=== PATIENT | male | born 1960 | race Caucasian/White ===

== ENCOUNTER 2017-06-10 20:30 | Emergency (ER) | payer SELFPAY ==
[2017-06-10 20:41] VITALS: BP 132/79
[2017-06-10] MEDS ORDERED: NS 0.9% 1000 ML* 1,000 ML IV ONE (22:21)
[2017-06-10] MEDS ORDERED: Clindamycin 900 MG IVPREMIX(* 900 MG/50 ML SDV IV ONE (22:22)
[2017-06-10 22:53] LABS: Hematocrit 45 % (42-52); Hemoglobin 15.5 g/dl (14.0-18.0); Mean Corpuscular HGB Conc 34 g/dl (31-36); Mean Corpuscular Hemoglobin 30 pg (27-31); Mean Corpuscular Volume 88 fL (80-94); Mean Platelet Volume 9 um3 (7.4-10.4); Red Blood Count 5.15 10^6/ul (4.0-5.4); Red Cell Distribution Width 13 % (10.5-15); White Blood Count 9.5 10^3/ul (3.5-10.8)
[2017-06-10 23:09] LABS: Albumin 4.2 g/dL (3.2-5.2); BUN/Creatinine Ratio 15.4 (8-20); C Reactive Protein 8.04 mg/L (< 5.00); Calcium 9.2 mg/dL (8.6-10.3); EGFR African American 110.1 (>60); EGFR Non-African American 85.6 (>60); Potassium 3.7 mmol/L (3.5-5.0); Total Bilirubin 0.6 mg/dL (0.2-1.0); Total Protein 7.2 g/dL (6.4-8.9)
[2017-06-11] MEDS ORDERED: Clindamycin CAP* 150 MG PO ONE (02:35)
[2017-06-11] MEDS ORDERED: Silver Sulfadiazine 1% 400gm* 1 APPLIC JAR TOPICAL ONE (02:36)
--- NOTE | 2017-06-11 02:47 | ED ---
Damian Cast Benjamin, scribed for Kade Pope MD on 06/10/17 at 2226 . Lower Extremity - HPI Summary HPI Summary: 56yo male c/o left foot pain since . 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 4000psi hot water shot at his left foot, cutting though his work boot. Pt was seen at [facility] today and was sent to ED for further evaluation. - History of Current Complaint Chief Complaint: EDExtremityLower Stated Complaint: LT FOOT INJURY/SENT BY [facility] Time Seen by Provider: 06/10/17 22:16 Hx Obtained From: Patient Onset of Pain: Post Accident Onset/Duration: Still Present - 2 days Severity Initially: Moderate Severity Currently: Moderate Pain Intensity: 7 Pain Scale Used: 0-10 Numeric Timing: Constant Location: Is Discrete @ - left foot Associated Signs And Symptoms: Positive: Swelling, Redness - Allergies/Home Medications Allergies/Adverse Reactions: Allergies Allergy/AdvReac Type Severity Reaction Status Date / Time Penicillins Allergy Unknown Verified 06/10/17 20:41 Reaction Details PMH/Surg Hx/FS Hx/Imm Hx Previously Healthy: Yes Endocrine/Hematology History: Denies: Hx Diabetes Cardiovascular History: Denies: Hx Coronary Artery Disease Infectious Disease History: No Infectious Disease History: Denies: Traveled Outside the [place] in Last 30 Days - Family History Known Family History: Positive: Hypertension - Social History Occupation: Employed Full-time Lives: With Family Alcohol Use: None Substance Use Type: Reports: None Smoking Status (MU): Former Smoker Review of Systems Constitutional: Negative Eyes: Negative ENT: Negative Cardiovascular: Negative Respiratory: Negative Gastrointestinal: Negative Genitourinary: Negative Musculoskeletal: Negative Positive: Other - blistering on left hoot. Neurological: Negative Psychological: Normal All Other Systems Reviewed And Are Negative: Yes Physical Exam - Summary Physical Exam Summary: General: well-appearing, no pain distress Skin: warm, dry. On the L foot over all 5 toes and the distal 7 cm of the plantar aspect of the foot, the patient has second degree church with blistering and one of the blisters has opened. There is some erythema and swelling medial to this region. He has good capillary refill and good sensation. Head: normal Eyes: EOMI, CK ENT: normal Neck: supple, nontender Respiratory: CTA, breath sounds present Cardiovascular: RRR Abdomen: soft, nontender Bowel: present Musculoskeletal: normal, strength/ROM intact Neurological: normal, sensory/motor intact, A&O x3 Psychological: affect/mood appropriate Triage Information Reviewed: Yes Vital Signs On Initial Exam: Initial Vitals Temp Pulse Resp BP Pulse Ox 97.8 F 72 16 132/79 97 06/10/17 20:38 06/10/17 20:38 06/10/17 20:38 06/10/17 20:38 06/10/17 20:38 Vital Signs Reviewed: Yes Diagnostics - Vital Signs Vital Signs Temp Pulse Resp BP Pulse Ox 06/10/17 20:41 97.8 F 72 16 132/79 97 06/10/17 20:38 97.8 F 72 16 132/79 97 - Laboratory Lab Results: Lab Results 06/10/17 06/10/17 06/10/17 Range/Units 22:40 22:40 22:40 WBC 9.5 (3.5-10.8) 10^3/ul RBC 5.15 (4.0-5.4) 10^6/ul Hgb 15.5 (14.0-18.0) g/dl Hct 45 (42-52) % MCV 88 (80-94) fL MCH 30 (27-31) pg MCHC 34 (31-36) g/dl RDW 13 (10.5-15) % Plt Count 237 (150-450) 10^3/ul MPV 9 (7.4-10.4) um3 Neut % (Auto) 58.6 (38-83) % Lymph % (Auto) 26.9 (25-47) % [place] % (Auto) 10.9 H (1-9) % Eos % (Auto) 3.0 (0-6) % Baso % (Auto) 0.6 (0-2) % Absolute Neuts (auto) 5.5 (1.5-7.7) 10^3/ul Absolute Lymphs (auto) 2.5 (1.0-4.8) 10^3/ul Absolute Monos (auto) 1.0 H (0-0.8) 10^3/ul Absolute Eos (auto) 0.3 (0-0.6) 10^3/ul Absolute Basos (auto) 0.1 (0-0.2) 10^3/ul Absolute Nucleated RBC 0.01 10^3/ul Nucleated RBC % 0.1 INR (Anticoag Therapy) 0.89 (0.89-1.11) APTT 31.5 (26.0-36.3) seconds Sodium 137 (133-145) mmol/L Potassium 3.7 (3.5-5.0) mmol/L Chloride 105 (101-111) mmol/L Carbon Dioxide 26 (22-32) mmol/L Anion Gap 6 (2-11) mmol/L BUN 14 (6-24) mg/dL Creatinine 0.91 (0.67-1.17) mg/dL Est GFR ( Amer) 110.1 (>60) Est GFR (Non-Af Amer) 85.6 (>60) BUN/Creatinine Ratio 15.4 (8-20) Glucose 102 H (70-100) mg/dL Lactic Acid (0.5-2.0) mmol/L Calcium 9.2 (8.6-10.3) mg/dL Total Bilirubin 0.60 (0.2-1.0) mg/dL AST 21 (13-39) U/L ALT 27 (7-52) U/L Alkaline Phosphatase 78 (34-104) U/L C-Reactive Protein 8.04 H (< 5.00) mg/L Total Protein 7.2 (6.4-8.9) g/dL Albumin 4.2 (3.2-5.2) g/dL Globulin 3.0 (2-4) g/dL Albumin/Globulin Ratio 1.4 (1-3) Lipase 35 (11.0-82.0) U/L 06/10/17 Range/Units 22:40 WBC (3.5-10.8) 10^3/ul RBC (4.0-5.4) 10^6/ul Hgb (14.0-18.0) g/dl Hct (42-52) % MCV (80-94) fL MCH (27-31) pg MCHC (31-36) g/dl RDW (10.5-15) % Plt Count (150-450) 10^3/ul MPV (7.4-10.4) um3 Neut % (Auto) (38-83) % Lymph % (Auto) (25-47) % [place] % (Auto) (1-9) % Eos % (Auto) (0-6) % Baso % (Auto) (0-2) % Absolute Neuts (auto) (1.5-7.7) 10^3/ul Absolute Lymphs (auto) (1.0-4.8) 10^3/ul Absolute Monos (auto) (0-0.8) 10^3/ul Absolute Eos (auto) (0-0.6) 10^3/ul Absolute Basos (auto) (0-0.2) 10^3/ul Absolute Nucleated RBC 10^3/ul Nucleated RBC % INR (Anticoag Therapy) (0.89-1.11) APTT (26.0-36.3) seconds Sodium (133-145) mmol/L Potassium (3.5-5.0) mmol/L Chloride (101-111) mmol/L Carbon Dioxide (22-32) mmol/L Anion Gap (2-11) mmol/L BUN (6-24) mg/dL Creatinine (0.67-1.17) mg/dL Est GFR ( Amer) (>60) Est GFR (Non-Af Amer) (>60) BUN/Creatinine Ratio (8-20) Glucose (70-100) mg/dL Lactic Acid 0.6 (0.5-2.0) mmol/L Calcium (8.6-10.3) mg/dL Total Bilirubin (0.2-1.0) mg/dL AST (13-39) U/L ALT (7-52) U/L Alkaline Phosphatase (34-104) U/L C-Reactive Protein (< 5.00) mg/L Total Protein (6.4-8.9) g/dL Albumin (3.2-5.2) g/dL Globulin (2-4) g/dL Albumin/Globulin Ratio (1-3) Lipase (11.0-82.0) U/L Result Diagrams: 06/10/17 22:40 06/10/17 22:40 Lab Statement: Any lab studies that have been ordered have been reviewed, and results considered in the medical decision making process. - CT CT LE CT Interpretation: No Acute Changes - No fracture. ED physician reviewed radiology report and agrees. CT Interpretation Completed By: Radiologist Re-Evaluation - Re-Evaluation First Eval Re-Evaluation Time: 02:22 Comment: Discussed results with the pt. Lower Extremity Course/Dx - Course Course Of Treatment: Reviewed pts medication and allergy lists. Blood pressure noted. LEFT FOOT INJURY APPEARS TO BE PRIMARILY A SECOND DEGREE BURN INJURY. NO AIR/GAS IN THE TISSUES ON CT. DISCUSSED RESULTS WITH PATIENT. RX SILVADENE AND CLINDAMYCIN; F/U WITH SURGERY; RETURN IF WORSE. - Diagnoses Provider Diagnoses: Burn of second degree of left foot, initial encounter, HIGH PRESSURE JET LEFT FOOT INJURY Discharge - Discharge Plan Condition: Stable Disposition: HOME Prescriptions: Clindamycin Cap(NF) [Clindamycin Cap 300 mg Cap(NF)] 300 mg PO Q6H #40 cap Patient Education Materials: Second Degree Burn (ED), Crush Injury (ED) Referrals: Medina Gonzalez MD [Primary Care Provider] - Additional Instructions: FOLLOW UP WITH SURGERY FOR YOUR BURN. RETURN TO THE EMERGENCY DEPARTMENT FOR ANY WORSENING OF YOUR CONDITION; FEVER, SPREAD OF INFECTION, YOU FEEL ILL OR QUESTIONS OR CONCERNS. The documentation as recorded by the Damian chacon Benjamin accurately reflects the service I personally performed and the decisions made by me, Kade Pope MD.
--- NOTE | 2017-06-11 08:05 | RAD ---
Indication: Left foot injury. CT of the left foot was obtained in the axial plane. Sagittal and coronal reconstructed images were obtained The ankle mortise is intact. No fracture of the medial lateral malleolus is noted. The talar dome is intact. There is no evidence of fracture. The navicular, cuneiforms and cuboid demonstrates no fracture. No evidence of fracture of the metatarsals is noted. The phalanges demonstrates no fracture. There is mild subcutaneous edema along the dorsum of the foot extending to the lateral aspect of the ankle. Degenerative changes of the first metatarsal phalangeal joint is noted. No definite evidence of discrete fluid collections are noted. IMPRESSION: No fracture of the foot is noted. Soft tissue edema in the dorsum of the foot extending to the lateral aspect of the ankle without discrete fracture.
--- NOTE | 2017-06-12 17:37 | ED ---
Progress - Progress Note Progress Note: Pt's prelim blood cx for aerobic organisms revealed gram variable bacilli. Pt started on clindamycin. No change at this time. Re-Evaluation - Re-Evaluation First Eval Re-Evaluation Time: 02:22 Comment: Discussed results with the pt. Course/Dx - Course Course Of Treatment: Reviewed pts medication and allergy lists. Blood pressure noted. LEFT FOOT INJURY APPEARS TO BE PRIMARILY A SECOND DEGREE BURN INJURY. NO AIR/GAS IN THE TISSUES ON CT. DISCUSSED RESULTS WITH PATIENT. RX SILVADENE AND CLINDAMYCIN; F/U WITH SURGERY; RETURN IF WORSE. - Diagnoses Provider Diagnoses: Burn of second degree of left foot, initial encounter, HIGH PRESSURE JET LEFT FOOT INJURY
== END 2017-06-11 03:16 | disposition home or self-care (01) ==
LOC: ED 20:30
DX: T25.222A Burn of second degree of left foot, initial encounter (principal); M79.672 Pain in left foot; Z87.891 Personal history of nicotine dependence; X12.XXXA Contact with other hot fluids, initial encounter; Y93.89 Activity, other specified; Y92.89 Other specified places as the place of occurrence of the external cause; Y99.8 Other external cause status
CPT/HCPCS: 36415; 80053; 83605; 83690; 85025; 85610; 85730; 86140; 87040; 87077; 87205; 96360; 99282; A9270-GY

== ENCOUNTER 2019-03-03 21:36 | Emergency (ER) | payer SELFPAY ==
--- NOTE | 2019-03-03 22:28 | ED ---
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 The patient rates the pain 8/10 in severity. Symptoms aggravated by movement. Symptoms alleviated by nothing. Patient was able to ambulate after. Patient does not take any blood thinners or daily medications. 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 PER Time Seen by Provider: 03/03/19 22:09 Hx Obtained From: Patient Mechanism Of Injury: Other - after a neonatal icu coordinator fell on to his left leg Onset of Pain: Prior to Arrival Onset/Duration: Still Present Severity Currently: Severe Pain Intensity: 8 Pain Scale Used: 0-10 Numeric Timing: Constant Location: Is Discrete @ - left lower extremity Aggravating Factor(s): Movement Alleviating Factor(s): Nothing Able to Bear Weight: Yes - Allergies/Home Medications Allergies/Adverse Reactions: Allergies Allergy/AdvReac Type Severity Reaction Status Date / Time Penicillins Allergy Unknown Verified 03/03/19 21:55 Reaction Details PMH/Surg Hx/FS Hx/Imm Hx Previously Healthy: No Endocrine/Hematology History: Denies: Hx Diabetes Cardiovascular History: Denies: Hx Coronary Artery Disease - Surgical History Surgery Procedure, Year, and Place: None reported Infectious Disease History: No Infectious Disease History: Denies: Traveled Outside the [place] in Last 30 Days - Family History Known Family History: Positive: Hypertension - Social History Alcohol Use: None Hx Substance Use: No Substance Use Type: Reports: None Hx Tobacco Use: Yes Smoking Status (MU): Former Smoker Review of Systems Negative: Fever Positive: Other - left lower extremity pain All Other Systems Reviewed And Are Negative: Yes Physical Exam - Summary Physical Exam Summary: VITAL SIGNS: Reviewed. GENERAL: Patient is a well-developed and nourished MALE who is lying comfortable in the stretcher. Patient is not in any acute respiratory distress. HEAD AND FACE: No signs of trauma. No ecchymosis, hematomas or skull depressions. No sinus tenderness. EYES: PERRLA, EOMI x 2, No injected conjunctiva, no nystagmus. EARS: Hearing grossly intact. Ear canals and tympanic membranes are within normal limits. MOUTH: Oropharynx within normal limits. NECK: Supple, trachea is midline, no adenopathy, no JVD, no carotid bruit, no c- spine tenderness, neck with full ROM CHEST: Symmetric, no tenderness at palpation LUNGS: Clear to auscultation bilaterally. No wheezing or crackles. CVS: Regular rate and rhythm, S1 and S2 present, no murmurs or gallops appreciated. ABDOMEN: Soft, non-tender. No signs of distention. No rebound no guarding, and no masses palpated. Bowel sounds are normal. EXTREMITIES: Diffuse swelling of left thigh with tenderness. Neurovascular in tact. +2 dorsalis pedis. His thigh is not tense. NEURO: Alert and oriented x 3. No acute neurological deficits. Speech is normal and follows commands. SKIN: Dry and warm Triage Information Reviewed: Yes Vital Signs On Initial Exam: Initial Vitals Temp Pulse Resp BP Pulse Ox 98.2 F 78 16 136/90 97 03/03/19 21:45 03/03/19 21:45 03/03/19 21:45 03/03/19 21:45 03/03/19 21:45 Vital Signs Reviewed: Yes Diagnostics - Vital Signs Vital Signs Temp Pulse Resp BP Pulse Ox 03/03/19 21:45 98.2 F 78 16 136/90 97 - Laboratory Result Diagrams: 03/03/19 22:43 03/03/19 22:43 Lab Statement: Any lab studies that have been ordered have been reviewed, and results considered in the medical decision making process. - Additional Comments Diagnostic Additional Comments: Left lower extremity CTA, per radiologist, shows left thigh anterior compartment intramuscular hematoma with no active extravasation or femoral fracture. ED physician has reviewed this report. Re-Evaluation - Re-Evaluation First Eval Re-Evaluation Time: 01:00 Comment: Patient feels better and his pain is now less. His hematoma did not increase in size and was not tense. 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 Labs showed no significant abnormalities. CTA Left lower extremity, per radiologist, shows left thigh anterior compartment intramuscular hematoma with no active extravasation or femoral fracture. In ED course, patient was given morphine and Reglan. Patient feels better and would like to go home. Patient was given instructions for compartment syndrome in case he develops those symptoms and knows to come back to ED. He was also instructed to elevate his left lower extremity, to limit weight bearing, to use crutches, tp avoid taking aspirin and ibuprofen. He was instructed to return to ED if his left thigh becomes bigger, develops numbness, or increases in pain. He was instructed to follow up with Dr. Monk, orthopedics, in 1-2 days. He is agreeable and understands discharge plan. - Diagnoses Provider Diagnoses: Hematoma of left thigh Discharge - Sign-Out/Discharge Documenting (check all that apply): Patient Departure - discharge Patient Received Moderate/Deep Sedation with Procedure: No - Discharge Plan Condition: Stable Disposition: HOME Prescriptions: oxyCODONE/Acetamin 5/325 MG* [Percocet 5/325 TAB*] 1 tab PO Q6H PRN #20 tab MDD 4 PRN Reason: Pain Patient Education Materials: Compartment Syndrome (DC) Forms: *Work Release Referrals: Samuel Monk MD [Medical Doctor] - 1 Day Additional Instructions: Elevate your left lower extremity. Limit weight bearing. If bearing weight, use crutches. Avoid taking aspirin and ibuprofen. If your left thigh becomes bigger , develops numbness, or increases in pain, come back to Emergency Department. Follow up with Dr. Monk, orthopedics, in 1-2 days. Return to the Emergency Department for new or worsening symptoms. - Attestation Statements Document Initiated by Scribe: Yes Documenting Scribe: Camilla Shin Provider For Whom Scribe is Documenting (Include Credential): Eda Piña MD Scribe Attestation: I, Camilla Shin, scribed for Eda Piña MD on 03/04/19 at 0227. Status of Scribe Document: Ready
[2019-03-03] MEDS ORDERED: Morphine 4 MG/ML VIAL (1 ml) 4 MG/ML VIAL IV ONE (22:32)
[2019-03-03] MEDS ORDERED: Metoclopramide IV* 5 MG/ML 2 ML VIAL IV SLOW PU ONE (22:33)
[2019-03-03 22:49] LABS: ABS Basophils 0.1 10^3/ul (0-0.2); ABS Eosinophils 0.3 10^3/ul (0-0.6); ABS Lymphocytes 1.7 10^3/ul (1.0-4.8); ABS Monocytes 0.9 10^3/ul (0-0.8); ABS Neutrophils 7.2 10^3/ul (1.5-7.7); Eosinophil % 2.5 %; Hematocrit 42 % (42-52); Hemoglobin 14.5 g/dL (14.0-18.0); Lymphocyte % 16.9 %; Mean Corpuscular HGB Conc 34 g/dL (31-36); Mean Corpuscular Hemoglobin 30 pg (27-31); Mean Corpuscular Volume 87 fL (80-94); Mean Platelet Volume 8.4 fL (7.4-10.4); Nucleated Red Blood Cells % 0.1; Platelet Count 251 10^3/uL (150-450); Red Blood Count 4.87 10^6 /uL (4.18-5.48); Red Cell Distribution Width 13 % (10-15); White Blood Count 10.2 10^3/uL (3.5-10.8)
[2019-03-03 23:02] LABS: Activated Partial Thrombo Time 33.3 seconds (26.0-38.0); INR 0.95 (0.82-1.09)
[2019-03-03 23:07] LABS: Albumin 3.8 g/dL (3.2-5.2); Albumin/Globulin Ratio 1.7 (1-3); BUN/Creatinine Ratio 19.8 (8-20); Calcium 8.5 mg/dL (8.6-10.3); EGFR African American 102.8 (>60); Globulin 2.3 g/dL (2-4); Total Bilirubin 0.3 mg/dL (0.2-1.0); Total Protein 6.1 g/dL (6.4-8.9)
[2019-03-03 23:09] LABS: Potassium 3.7 mmol/L (3.5-5.0)
[2019-03-03] MEDS ORDERED: Iohexol 350* (CONTRAST) 500 ML MDV IV ONE (23:36)
[2019-03-04 01:34] VITALS: BP 115/70
== END 2019-03-04 01:38 | disposition home or self-care (01) ==
LOC: ED 21:36
DX: S70.12XA Contusion of left thigh, initial encounter (principal); M79.662 Pain in left lower leg; Z87.891 Personal history of nicotine dependence; Z88.0 Allergy status to penicillin; W31.89XA Contact with other specified machinery, initial encounter; Y92.9 Unspecified place or not applicable
CPT/HCPCS: 36415; 73706; 80053; 82550; 85025; 85610; 85730; 96374; 96375; 99283; J2270; J2765; Q9967

== ENCOUNTER 2019-11-14 13:49 | Emergency (ER) | payer SELFPAY ==
[2019-11-14 14:08] VITALS: BP 108/69
--- NOTE | 2019-11-14 14:12 | UC ---
FLU HPI - HPI Summary HPI Summary: 59 yo male presents with flu-like symptoms. He tells me that for the last 3-4 days he has had body aches, fatigue, cough, sore throat, and runny nose. He has been taking ibuprofen intermittently with little relief. Has felt feverish, but has not taken his temperature. He did not get a flu shot this year. Denies rash , SOB, chest pain, abdominal pain, n/v - History of Current Complaint Chief Complaint: UCGeneralIllness Stated Complaint: FLU LIKE SYMPTOMS Time Seen by Provider: 11/14/19 14:12 Hx Obtained From: Patient Onset/Duration: Sudden Onset Severity Currently: Mild Severity Initially: Mild Pain Intensity: 1 Pain Scale Used: 0-10 Numeric - Allergy/Home Medications Allergies/Adverse Reactions: Allergies Allergy/AdvReac Type Severity Reaction Status Date / Time Penicillins Allergy Unknown Verified 11/14/19 14:00 Reaction Details Home Medications: Home Medications Oseltamivir CAP* [Tamiflu CAP*] 75 mg PO BID #10 cap 11/14/19 [Rx] diphenhydrAMINE HCl [Benadryl Allergy 25 MG CAP] 25 mg PO ONCE 11/14/19 [ History Confirmed 11/14/19] PMH/Surg Hx/FS Hx/Imm Hx - Additional Past Medical History Additional PMH: None - Surgical History Surgical History: None Surgery Procedure, Year, and Place: None reported - Family History Known Family History: Positive: Hypertension - Social History Lives: With Family Alcohol Use: Occasionally Substance Use Type: None Smoking Status (MU): Former Smoker Review of Systems All Other Systems Reviewed And Are Negative: No Constitutional: Positive: Chills, Fatigue, Other - Body aches Skin: Positive: Negative Eyes: Positive: Negative ENT: Positive: Sore Throat Respiratory: Positive: Cough Cardiovascular: Positive: Negative Gastrointestinal: Positive: Negative Neurological/Mental Status: Positive: Negative Psychological: Positive: Negative Physical Exam - Summary Physical Exam Summary: GENERAL: NAD. WDWN. No pain distress. SKIN: No rashes, sores, lesions, or open wounds. HEENT: Head: AT/NC Eyes: EOM intact. Conjunctiva clear without inflammation or discharge. Ears: Hearing grossly normal. TMs intact, no bulging, erythema, or edema. Nose: Nasal mucosa pink and moist. NTTP maxillary and frontal sinus. Throat: Posterior oropharynx without exudates, erythema, or tonsillar enlargement. Uvula midline. NECK: Supple. Nontender. No lymphadenopathy. CHEST: CTAB. No r/r/w. No accessory muscle use. Breathing comfortably and in no distress. CV: RRR. Pulses intact. Cap refill <2seconds NEURO: Alert. PSYCH: Age appropriate behavior. Triage Information Reviewed: Yes Vital Signs: Initial Vital Signs Temp 98.6 F 11/14/19 14:01 Pulse 75 11/14/19 14:01 Resp 16 11/14/19 14:01 BP 108/69 11/14/19 14:01 Pulse Ox 97 11/14/19 14:01 Laboratory Tests 11/14/19 14:17 Influenza B (Rapid) Positive H Vital Signs Reviewed: Yes Flu Course/Dx - Course Course Of Treatment: POC flu positive. Rx for tamiflu - Differential Dx/Diagnosis Provider Diagnosis: Influenza Discharge ED - Sign-Out/Discharge Documenting (check all that apply): Patient Departure All imaging exams completed and their final reports reviewed: No Studies - Discharge Plan Condition: Stable Disposition: HOME Prescriptions: Oseltamivir CAP* [Tamiflu CAP*] 75 mg PO BID #10 cap Patient Education Materials: Influenza (ED) Referrals: Medina Gonzalez MD [Primary Care Provider] - Additional Instructions: Most people with the flu recover within one to two weeks without treatment. However, serious complications of the flu can occur. Go to the ER immediately if you: -- You feel short of breath or have trouble breathing -- You have pain or pressure in your chest or stomach -- You have signs of being dehydrated, such as dizziness when standing or not passing urine -- You feel confused -- You cannot stop vomiting or you cannot drink enough fluids There are several groups of people who are at increased risk for flu complications. These include women, young children (<5 years of age and especially <2 years of age), people older than 65 years of age, and people with certain diseases such as chronic lung disease (such as asthma), heart disease, diabetes, immunosuppressing conditions (such as HIV infection or transplantation), and some other diseases. Treat symptoms Treating the symptoms of influenza can help you to feel better but will not make the flu go away faster. -- Rest until the flu is fully resolved, especially if the illness has been severe. -- Fluids Drink enough fluids so that you do not become dehydrated. 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 Normally, urine should be light yellow to nearly colorless. If you are drinking enough, you should pass urine every three to five hours. -- Acetaminophen (sample brand name: Tylenol) can relieve fever, headache, and muscle aches. Aspirin and medicines that include aspirin (eg, bismuth subsalicylate [sample brand name: Pepto-Bismol]) are not recommended for children under 18 because aspirin can lead to a serious disease called Danni syndrome. -- Cough medicines are not usually helpful; cough usually resolves without treatment. We do not recommend cough or cold medicine for children under age 6 years. Antiviral treatment Antiviral medicines can be used to treat or prevent influenza. When used as a treatment, the medicine does not eliminate flu symptoms, although it can reduce the severity and duration of symptoms by about one day. Not every person with influenza needs an antiviral medicine, but some people do; the decision is based upon several factors. If you are severely ill and/or have risk factors for developing complications of influenza, you will need an antiviral agent. People who are only mildly ill and have no risk factors for complications usually do not need to be treated with antiviral medication. - Billing Disposition and Condition Condition: STABLE Disposition: Home - Attestation Statements Provider Attestation: This patient was not seen by me. I was available for consult Chart reviewed MICHELLE
[2019-11-14 14:21] LABS: Influenza B Molecular POSITIVE (Negative)
== END 2019-11-14 14:36 | disposition home or self-care (01) ==
LOC: UCEAST 13:49
DX: J11.1 Influenza due to unidentified influenza virus with other respiratory manifestations (principal); Z87.891 Personal history of nicotine dependence; Z88.0 Allergy status to penicillin
CPT/HCPCS: 99212; G0463